=== PATIENT | male | born 1985 | race Caucasian/White ===

== ENCOUNTER → 2017-11-16 | Outpatient (CLI) | payer BC ==
[~2017-11-16] MED LIST: FLOMAX0.4 MG PO; PERCOCET 5-3251 EACH PO; ZOFRAN ODT4 MG PO
== END ==
LOC: RAD 11:02
DX: M25.512 Pain in left shoulder (principal); G89.29 Other chronic pain

== ENCOUNTER 2020-04-07 18:03 | Emergency (ER) | payer BC ==
[~2020-04-07] VITALS: Ht 177.8 cm; Wt 108.9 kg
[2020-04-07] MEDS ORDERED: ADDERALL 10 MG10 MG PO (18:59)
[2020-04-07] MEDS ORDERED: ERYTHROMYCIN E3.5 G2 OPHTHALMIC ×2 (20:28→20:32)
[2020-04-07 20:45] VITALS: BP 130/96
== END 2020-04-07 20:47 | disposition home or self-care (01) ==
LOC: ER 18:03
DX: T15.91XA Foreign body on external eye, part unspecified, right eye, initial encounter (principal); Z79.899 Other long term (current) drug therapy; Z88.6 Allergy status to analgesic agent; Z88.8 Allergy status to other drugs, medicaments and biological substances; X58.XXXA Exposure to other specified factors, initial encounter; Y93.89 Activity, other specified; Y92.89 Other specified places as the place of occurrence of the external cause; Y99.8 Other external cause status